=== PATIENT | female | born 1945 | race African-American/Black ===

== ENCOUNTER → 2017-10-17 | Outpatient (CLI) | payer MEDICARE, OTHER ==
[~2017-10-17] MED LIST: AMLO10TA55 PO; CLON0.1T PO; CLOP75 PO; DSS100 PO; HYDR25TA PO; INSLAN SQ; INSNPH SQ; IPRA3AMP4 NEB; LISI10TA PO; MET500 PO; METO25XL PO; MONT10TA21 PO; NITR100C9 PO; OXYC-165 PO; PANT40TA25 PO; PREM625 PO; TIZA4TAB4 PO; VALS320T2 PO; ZOLP5 PO
== END | disposition home or self-care (01) ==
LOC: RADPV 15:23
PROVIDERS: ATTEND Orthopaedic Surgery
DX: M17.12 Unilateral primary osteoarthritis, left knee (principal); M77.32 Calcaneal spur, left foot

== ENCOUNTER 2017-11-17 13:10 | Emergency (ER) | payer MEDICARE, OTHER ==
[~2017-11-17] VITALS: Ht 160 cm; Wt 57.3 kg
[~2017-11-17 13:10] MED LIST changes: -CLOP75 PO; -DSS100 PO; -IPRA3AMP4 NEB; -MET500 PO; -METO25XL PO; -MONT10TA21 PO; -NITR100C9 PO; -PANT40TA25 PO; -PREM625 PO; -TIZA4TAB4 PO; -ZOLP5 PO
[2017-11-17] MEDS ORDERED: CLOP75 PO (13:30)
[2017-11-17] MEDS ORDERED: TIZA4TAB4 PO (13:30)
[2017-11-17] MEDS ORDERED: IPRA3AMP4 NEB (13:30)
[2017-11-17] MEDS ORDERED: MONT10TA21 PO (13:30)
[2017-11-17] MEDS ORDERED: PREM625 PO (13:30)
[2017-11-17] MEDS ORDERED: ZOLP5 PO (13:30)
[2017-11-17] MEDS ORDERED: PANT40TA25 PO (13:30)
[2017-11-17] MEDS ORDERED: METO25XL PO (13:30)
[2017-11-17] MEDS ORDERED: DSS100 PO (13:30)
[2017-11-17] MEDS ORDERED: MET500 PO (13:30)
[2017-11-17] MEDS ORDERED: NITR100C9 PO (13:30)
[2017-11-17] MEDS ORDERED: IPRATROPIUM BROMIDE 0.5 MG/2.5 ML NEB SOLUTION NEB ONE (14:15)
[2017-11-17] MEDS ORDERED: ALBUTEROL SULFATE 2.5 MG/0.5 ML NEB SOLUTION NEB ONE (14:15)
[2017-11-17 14:43] LABS: BASOPHILS % (AUTO) 0.3 % (0.0-2.0); EOSINOPHILS % (AUTO) 1.9 % (1.0-6.0); HEMATOCRIT 42.8 % (36-46); HEMOGLOBIN 14.4 g/dL (12.0-16.0); MEAN CORPUSCULAR HEMOGLOBIN 32.5 pg (26.0-34.0); MEAN CORPUSCULAR HGB CONC 33.7 G/dL (31.0-37.0); MEAN CORPUSCULAR VOLUME 96 fL (80-100); MONOCYTES # (AUTO) 0.4 K/uL (0.1-1.0); MONOCYTES % (AUTO) 8.4 % (2.0-9.0); NEUTROPHILS # (AUTO) 3.7 K/uL (1.8-7.7); NEUTROPHILS % (AUTO) 70.4 % (40.0-70.0); PLATELET COUNT (AUTO) 188 K/uL (150-450); RED BLOOD CELL COUNT(AUTO) 4.44 MIL/uL (4.00-5.20); RED CELL DISTRIBUTION WIDTH 14.3 % (11.5-14.5)
[2017-11-17 14:52] LABS: ANION GAP 5 mmol/L (8-16); CALCIUM, TOTAL 8.9 mg/dL (8.8-10.5); CARBON DIOXIDE 30 mmol/L (22-29); CHLORIDE 98 mmol/L (98-107); CREATININE 0.94 mg/dL (0.60-1.30); GLOMERULAR FILTR. RATE CALC > 60 mL/min (>60); GLUCOSE,RANDOM 198 mg/dL (70-110); POTASSIUM 4.1 mmol/L (3.5-5.1); SODIUM SERUM 133 mmol/L (136-145); UREA NITROGEN, BLOOD 18 mg/dL (7-18)
[2017-11-17 14:57] LABS: ALANINE AMINOTRANSFERASE 39 U/L (12-78); ALBUMIN 3.7 g/dL (3.4-5.0); ALKALINE PHOSPHATASE 63 U/L (46-116); ASPARTATE AMINOTRANSFERASE 32 U/L (15-37); BILIRUBIN,TOTAL 0.5 mg/dL (0.1-1.0); TOTAL PROTEIN, SERUM 6.9 g/dL (6.4-8.2)
[2017-11-17 15:01] LABS: B-TYPE NATRIURETIC PEPTIDE 22 pg/mL (0-100)
[2017-11-17 15:02] LABS: INFLUENZA TYPE A NEGATIVE FOR TYPE A (NEGATIVE); INFLUENZA TYPE B NEGATIVE FOR TYPE B (NEGATIVE)
[2017-11-17] MEDS ORDERED: HYDROmorphone 2 MG/ML SYRINGE IVP ONE (15:15)
[2017-11-17] MEDS ORDERED: LEVOFLOXACIN 500 MG/D5% WATER 100 ML IV ONE (15:30)
[2017-11-17 15:39] LABS: APPEARANCE,URINE CLEAR (CLEAR); BILIRUBIN,URINE NEGATIVE (NEGATIVE); GLUCOSE, URINE (UA) 100 mg/dL (NEGATIVE); KETONES,URINE 15 mg/dL (NEGATIVE); LEUKOCYTE ESTERASE ,URINE NEGATIVE (NEGATIVE); NITRATE,URINE NEGATIVE (NEGATIVE); OCCULT BLOOD,URINE NEGATIVE (NEGATIVE); PROTEIN,URINE NEGATIVE (NEGATIVE); UROBILINOGEN,URINE 0.2 mg/dL (<=1.0)
[2017-11-17 15:44] LABS: BACTERIA,URINE Few /HPF (None Seen); SQUAMOUS EPITHELIAL CELL,UR Few /LPF (None Seen)
[2017-11-17] MEDS ORDERED: MethylPREDNISolone SOD SUCC 125 MG/2 ML VIAL IVP ONE (15:45)
[2017-11-17] MEDS ORDERED: 0.9% SODIUM CHLORIDE 10 ML SYRINGE IVP PRN (16:00)
[2017-11-17] MEDS ORDERED: ACETAMINOPHEN 325 MG TABLET PO PRN (16:00)
[2017-11-17 16:32] VITALS: BP 126/76
[2017-11-17] MEDS ORDERED: IPRATROPIUM BROMIDE 0.5 MG/2.5 ML NEB SOLUTION NEB SCH (19:00)
[2017-11-17] MEDS ORDERED: ALBUTEROL SULFATE 2.5 MG/0.5 ML NEB SOLUTION NEB SCH (19:00)
== END 2017-11-17 18:06 | disposition left against medical advice (07) ==
LOC: EMS 13:12
DX: J44.1 Chronic obstructive pulmonary disease with (acute) exacerbation (principal); E11.9 Type 2 diabetes mellitus without complications; I10 Essential (primary) hypertension; M79.1 Myalgia; J45.901 Unspecified asthma with (acute) exacerbation; Z79.4 Long term (current) use of insulin; Z88.6 Allergy status to analgesic agent; Z88.5 Allergy status to narcotic agent
CPT/HCPCS: 36415; 71045; 80053; 81001; 83880; 84484; 85025; 87086; 87804; 93005; 94644; 96374; 96375; 99285; J1170; J1956; J2930; 82962